=== PATIENT | male | born 1965 | race Caucasian/White ===

== ENCOUNTER 2023-06-04 06:26 | Inpatient (IN) | payer BC, OTHER ==
[2023-06-04] MEDS ORDERED: Ipratropium Bromide 2.5 ml Neb ONE ×2 (07:03→08:07)
[2023-06-04 07:10] LABS: #Eosinphils 0.1 thou/uL (0.0-0.7); #Monocytes 0.7 thou/uL (0.11-0.59); %Basophils 0.3 % (0.0-1.0); %Lymphocytes 7.6 % (21.0-51.0); %Monocytes 5.1 % (0.0-10.0); %Neutrophils 85.7 % (42.0-75.0); Hematocrit 45.7 % (42.0-52.0); Hemoglobin 15.7 g/dL (14.0-18.0); Mean Corpuscular HGB CONC 34.4 g/dL (32.0-36.0); Mean Corpuscular Hemoglobin 31.5 pg (27.0-31.0); Mean Corpuscular Volume 91.8 fl (78.0-98.0); Platelet Count 298 10x3/uL (130-400); RBC Distribution Width 13.2 % (11.5-14.5); Red Blood Cell (RBC) Count 4.98 mill/uL (4.70-6.10)
[2023-06-04] MEDS ORDERED: methylPREDNISolone Sod Succ/PF 125 MG/2 ML VIAL ONE (07:25)
[2023-06-04] MEDS ORDERED: Ondansetron PF 4 MG/2 ML Vial ONE (07:33)
[2023-06-04] MEDS ORDERED: Magnesium 2 GM/50 ML BAG (IN WATER) ONE (07:39)
[2023-06-04 07:58] LABS: Magnesium 1.8 mg/dL (1.6-2.6)
[2023-06-04 08:13] LABS: ALT (SGPT) 23 U/L (8-55); AST (SGOT) 23 U/L (5-34); Albumin 3.5 g/dL (3.5-5.0); Alkaline Phosphatase 87 U/L (40-110); Anion Gap 14 mmol/L (10-20); BUN (Urea Nitrogen) 10 mg/dL (8.4-25.7); Bilirubin, Total 0.5 mg/dL (0.2-1.2); Calc. Creatinine Clearance 0 mL/min (70-130); Calcium 9.1 mg/dL (7.8-10.44); Carbon Dioxide 24 mmol/L (22-29); Chloride 101 mmol/L (98-107); Estimated GFR 102; Globulin 2.9 g/dL (2.4-3.5); Glucose 189 mg/dL (70-105); Protein, Total 6.4 g/dL (6.0-8.3); Sodium 135 mmol/L (136-145)
[2023-06-04 08:15] LABS: Troponin I 0.022 ng/mL (< 0.028)
[2023-06-04] MEDS ORDERED: Iopamidol-370 76% 500 ML MDV (1 ML CHARGE) ONE (09:10)
[2023-06-04] MEDS ORDERED: cefTRIAXone (ROCEPHIN) 1 GM VIAL ONE (09:14)
[2023-06-04] MEDS ORDERED: Azithromycin 500 MG VIAL ONE (09:14)
[2023-06-04 10:40] LABS: Actual Bicarbonate (HCO3v) 23.6 mEq/L (22-28); Analyzer IN Cardio ER; Base Excess -1.5 mEq/L (-2.0 to +3.0); Chloride (VBG) 99 mmol/L (98-106); Hematocrit-VBG 48 % (42.0-52.0); Hemoglobin (Hb) 16.3 g/dL (13.1-17.2); Potassium (VBG) 3.78 mmol/L (3.70-5.30); Sodium 134.8 mmol/L (133-146); pH (venous) 7.378 (7.32-7.43)
[2023-06-04 15:15] VITALS: BP 118/72; TEMP 98.1
[2023-06-04] MEDS ORDERED: Amoxicillin/Potassium Clav 875 MG TAB PO SCH (21:00)
[2023-06-04] MEDS ORDERED: Doxycycline 100 MG CAP PO SCH (21:00)
[2023-06-05] MEDS ORDERED: predniSONE 50 MG TAB PO SCH (08:00)
== END 2023-06-04 12:25 | disposition home or self-care (01) | DRG 194 ==
LOC: ERS 06:26 → ERHOLD 09:32
PROVIDERS: ADMIT Internal Medicine; ATTEND Internal Medicine
DX: J15.9 Unspecified bacterial pneumonia (principal); D84.9 Immunodeficiency, unspecified; J44.1 Chronic obstructive pulmonary disease with (acute) exacerbation; J12.9 Viral pneumonia, unspecified; M32.9 Systemic lupus erythematosus, unspecified; Z79.51 Long term (current) use of inhaled steroids; Z79.899 Other long term (current) drug therapy; Z87.891 Personal history of nicotine dependence; Z98.890 Other specified postprocedural states
CPT/HCPCS: 36415; 71045; 71275; 80053; 82805; 83605; 83735; 83880; 84484; 85025; 93005; 94640; J0456; J0696; J2405; J2930; J3475; J7611